=== PATIENT | female | born 1995 | race Caucasian/White ===

== ENCOUNTER 2017-03-07 20:05 | Emergency (ER) | payer SELFPAY ==
--- NOTE | 2017-03-07 21:03 | ED PDOC ---
HPI: Abdomen Time Seen by Provider: 03/07/17 21:01 Chief Complaint (Nursing): Abdominal Pain Chief Complaint (Provider): ABDOMINAL PAIN History Per: Patient (22 Y/O FEMALE HERE WITH LEFT LOWER QUADRANT PAIN X 3 DAYS RADIATING TO BACK ASSOCIATED WITH URINARY FREQUENCY AND HEMATURIA. PATIENT STATES SHE HAS A H/O PAIN INTERMITTENT X MONTHS RELATED TO OVARIAN CYST. DENIES ANY FEVERS OR CHILLS.) Past Medical History Reviewed: Historical Data, Nursing Documentation, Vital Signs Vital Signs: Last Vital Signs Temp 99.6 F 03/07/17 20:34 Pulse 73 03/07/17 20:34 Resp 18 03/07/17 20:34 BP 128/73 03/07/17 20:34 Pulse Ox 100 03/07/17 21:03 - Medical History PMH: Anemia - Surgical History Surgical History: No Surg Hx - Family History Family History: States: No Known Family Hx - Home Medications Home Medications: Ambulatory Orders Medication Instructions Recorded Ciprofloxacin HCl [Cipro] 250 mg PO BID #6 tablet 03/07/17 Naproxen [Naprosyn Tab] 375 mg PO Q8 PRN #21 tab 03/07/17 - Allergies Allergies/Adverse Reactions: Allergies Allergy/AdvReac Type Severity Reaction Status Date / Time No Known Allergies Allergy Verified 07/10/15 22:22 Review of Systems ROS Statement: Except As Marked, All Systems Reviewed And Found Negative Physical Exam - Reviewed Nursing Documentation Reviewed: Yes Vital Signs Reviewed: Yes - Physical Exam Appears: Positive for: Well, Non-toxic, No Acute Distress Head Exam: Positive for: ATRAUMATIC, NORMAL INSPECTION, NORMOCEPHALIC Skin: Positive for: Normal Color, Warm, DRY Eye Exam: Positive for: EOMI, Normal appearance, PERRL ENT: Positive for: Normal ENT Inspection Neck: Positive for: Normal, Painless ROM Cardiovascular/Chest: Positive for: Regular Rate, Rhythm Respiratory: Positive for: CNT, Normal Breath Sounds Gastrointestinal/Abdominal: Positive for: Normal Exam, Bowel Sounds, Soft Pelvic Exam: Positive for: Tender Adnexa (TENDER ABOVE LEFT ADNEXAL REGION) Back: Positive for: Normal Inspection. Negative for: L CVA Tenderness, R CVA Tenderness Extremity: Positive for: Normal ROM Neurologic/Psych: Positive for: Alert, Oriented - Laboratory Results Result Diagrams: 03/07/17 20:44 03/07/17 21:20 Urine POC: Negative Urine dip results: Positive for: Blood. Negative for: Leukocyte Esterase, Nitrate, Ketones, Glucose, Bilirubin, Protein - ECG O2 Sat by Pulse Oximetry: 100 - Progress ED Course And Treament: US OF TRANSVAGINAL: IMPRESSION: 1. Probable hemorrhagic LEFT ovarian cyst. Recommend sonographic followup in 6 weeks to ensure resolution and exclude other etiologies. 2. Incidental/non-acute findings are described above. Thank you for allowing us to participate in the care of your patient. RENAL US: IMPRESSION: 1. No hydronephrosis. 2. Incidental/non-acute findings are described above. Thank you for allowing us to participate in the care of your patient. Dictated and Authenticated by: Kody Schuster MD TORADOL 15 MG IV X 1 DOSE Disposition - Clinical Impression Clinical Impression: Ovarian cyst - Patient ED Disposition Is Patient to be Admitted: No - Disposition [facility] Disposition Time: 22:56 Condition: FAIR Prescriptions: Ciprofloxacin HCl [Cipro] 250 mg PO BID #6 tablet Naproxen [Naprosyn Tab] 375 mg PO Q8 PRN #21 tab PRN Reason: Pain, Moderate (4-7) Instructions: Ovarian Cyst (ED) Forms: [facility] ED School/Work Excuse
[2017-03-07 21:25] LABS: BASO # 0.1 K/uL (0.0-0.2); BASO % 1.2 % (0.0-2.0); EOS # 0.3 K/uL (0.0-0.7); EOS % 3.8 % (0.0-4.0); HEMATOCRIT 29.4 % (34.0-47.0); LYMPH % 24.8 % (20.0-40.0); MEAN CELL VOLUME 65.8 fl (81.0-99.0); MEAN CORPUSCULAR HGB CONC 30.5 g/dL (33.0-37.0); MEAN PLATELET VOLUME 8.5 fl (7.2-11.7); MONO # 0.6 K/uL (0.0-0.8); MONO % 7.3 % (0.0-10.0); NEUT # 5.1 K/uL (1.8-7.0); NEUT % 62.9 % (50.0-75.0); RED CELL DISTRIBUTION WIDTH 17.1 % (11.5-14.5); WHITE BLOOD COUNT 8.1 K/uL (4.8-10.8)
[2017-03-07 21:27] LABS: ALB/GLOB RATIO 1.3 (1.0-2.1); ALKALINE PHOSPHATASE 64 U/L (38-126); ALT/SGPT 26 U/L (9-52); AST/SGOT 29 U/L (14-36); BILIRUBIN,TOTAL 0.2 mg/dl (0.2-1.3); BLOOD UREA NITROGEN 11 mg/dl (7-17); CALCIUM 8.9 mg/dL (8.4-10.2); CARBON DIOXIDE 24 mmol/L (22-30); CHLORIDE 103 mmol/L (98-107); GFR AFRICAN-AMERICAN > 60; GLUCOSE,RANDOM 124 mg/dL (65-105); LIPASE 87 U/L (23-300); POTASSIUM 3.8 MMOL/L (3.6-5.0); SODIUM 141 mmol/l (132-148); TOTAL PROTEIN 7.9 G/DL (6.3-8.2)
[2017-03-07 21:28] LABS: RBC URINE 14 /hpf (0-3); URINE BILIRUBIN NEGATIVE (NEGATIVE); URINE BLOOD NEGATIVE (NEGATIVE); URINE COLOR YELLOW (YELLOW); URINE GLUCOSE (UA) NEG (Normal); URINE KETONE NEGATIVE (NEGATIVE); URINE LEUKOCYTE ESTERASE NEG Leu/uL (Negative); URINE PROTEIN 30 mg/dL (NEGATIVE); URINE UROBILINOGEN 0.2-1.0 mg/dL (0.2-1.0); WBC URINE 8 /hpf (0-5)
--- NOTE | 2017-03-07 22:37 | US ---
EXAM: US Retroperitoneal Limited, Renal CLINICAL HISTORY: 22 years old, female; Pain; Abdominal pain; Generalized; Additional info: Evaluate for hydronephrosis TECHNIQUE: Real-time ultrasound of the retroperitoneum (limited) with image documentation. COMPARISON: No relevant prior studies available. FINDINGS: Right kidney: Normal echogenicity. No calculi. No hydronephrosis. Left kidney: Normal echogenicity. No calculi. No hydronephrosis. Bladder: Incomplete distention, limiting evaluation. Ureteral jets not visualized. IMPRESSION: 1. No hydronephrosis. 2. Incidental/non-acute findings are described above.
--- NOTE | 2017-03-07 22:41 | US ---
EXAM: US Pelvis, Transvaginal CLINICAL HISTORY: 22 years old, female; Pain; Pelvic pain; Additional info: R/O ovarian cyst TECHNIQUE: Real-time transvaginal pelvic ultrasound (complete) with image documentation. Transvaginal imaging was used for better evaluation of the endometrium and adnexa. COMPARISON: No relevant prior studies available. FINDINGS: Uterus/cervix: Uterus measures 6.4 x 4.1 x 3.6 cm in size. Retroverted uterus. No myometrial mass. Endometrium: 1.1 cm in thickness. Right ovary: 2.6 x 2.1 x 2.4 cm in size. No mass. Small follicles. Normal flow. Left ovary: 3.4 x 2.1 x 2.8 cm in size. 1.7 x 1.3 x 1.6 cm heterogeneous lesion with internal echoes/debris. Small follicles. Normal flow. Free fluid: No significant free fluid. Bladder: Empty bladder which cannot be evaluated with this probe. IMPRESSION: 1. Probable hemorrhagic LEFT ovarian cyst. Recommend sonographic followup in 6 weeks to ensure resolution and exclude other etiologies. 2. Incidental/non-acute findings are described above.
[2017-03-07 23:20] VITALS: BP 121/69; PULSE 76; RESP 16; TEMP 98.7; O2SAT 99
== END 2017-03-07 23:24 | disposition home or self-care (01) ==
LOC: H.ER 20:05
DX: N83.202 Unspecified ovarian cyst, left side (principal); R10.2 Pelvic and perineal pain; R10.84 Generalized abdominal pain
CPT/HCPCS: 76770; 76830; 80053; 81003; 81025; 83690; 85025; 87086; 87491; 87591; 96374; 99282; J1885